=== PATIENT | male | born 1995 | race Caucasian/White ===

== ENCOUNTER → 2024-01-18 | Outpatient (CLI) | payer OTHER | LOC: M SOG 08:08 | PROVIDERS: ATTEND Physician Assistant | DX: M79.642 Pain in left hand (principal) ==

== ENCOUNTER 2024-01-30 08:08 | Day surgery (SDC) | payer OTHER ==
[~2024-01-30] VITALS: Ht 185.4 cm; Wt 76.7 kg
[2024-01-30] MEDS ORDERED: LR 1,000 ML IV SCH ×2 (08:50→11:35)
[2024-01-30] MEDS ORDERED: LIDOCAINE 1% SDV 5ML VIAL SC PRN (08:50)
[2024-01-30] MEDS ORDERED: LIDOCAINE 2% 100MG/5ML SDV (FOR ANES.) As Ordered ONE (10:10)
[2024-01-30] MEDS ORDERED: MIDAZOLAM INJ 2MG/2ML VIAL As Ordered ONE (10:10)
[2024-01-30] MEDS ORDERED: fentaNYL 100 MCG/2 ML INJECTION As Ordered ONE (10:10)
[2024-01-30] MEDS ORDERED: propofoL 200 MG/20 ML VIAL As Ordered ONE (10:10)
[2024-01-30] MEDS ORDERED: ONDANSETRON 4MG 2ML VIAL As Ordered ONE (10:10)
[2024-01-30] MEDS ORDERED: KETOROLAC 60MG 2ML VIAL As Ordered ONE (10:11)
[2024-01-30] MEDS ORDERED: dexmedeTOMIDine (4MCG/ML)200MCG/50ML BTL (PRECEDEX) As Ordered ONE (10:11)
[2024-01-30] MEDS ORDERED: KETAMINE HCL 200MG/20ML VIAL As Ordered ONE (10:12)
[2024-01-30] MEDS ORDERED: ACETAMINOPHEN 1000MG 100ML IV BAG As Ordered ONE (10:49)
[2024-01-30] MEDS: ceFAZolin 2 GM/D5W 50 ML IV BAG As Ordered ONE (10:54)
[2024-01-30] MEDS ORDERED: ePHEDrine SULFATE 25 MG/5 ML(5MG/ML) SYRINGE As Ordered ONE (11:27)
[2024-01-30] MEDS ORDERED: PHENYLephrine 500MCG 5ML (100MCG/ML) SYRINGE As Ordered ONE (11:30)
[2024-01-30] MEDS: BACITRACIN OINTMENT 30GM TUBE As Ordered ONE (11:31)
[2024-01-30] MEDS ORDERED: fentaNYL 100 MCG/2 ML INJECTION IV PRN (11:35)
[2024-01-30] MEDS ORDERED: ONDANSETRON 4MG 2ML VIAL IV PRN (11:35)
[2024-01-30] MEDS ORDERED: PERC5TAB12 PO (11:48)
[2024-01-30] MEDS: oxyCODONE 5MG TAB PO PRN (12:17)
[2024-01-30 12:30] VITALS: BP 116/65; TEMP 97.2; O2SAT 99
== END 2024-01-30 12:54 | disposition home or self-care (01) ==
LOC: M SDC 08:08
PROVIDERS: ATTEND Orthopaedic Surgery Hand Surgery
DX: S66.322A Laceration of extensor muscle, fascia and tendon of right middle finger at wrist and hand level, initial encounter (principal); F41.9 Anxiety disorder, unspecified; F32.9 Major depressive disorder, single episode, unspecified; J45.909 Unspecified asthma, uncomplicated; F43.10 Post-traumatic stress disorder, unspecified
CPT/HCPCS: 26433; 76000; J0131; J0665; J0690; J1100; J1885; J2250; J2371; J2405; J3010

== ENCOUNTER → 2024-02-09 | Outpatient (CLI) | payer OTHER ==
[~2024-02-09] MED LIST: PERC5TAB12 PO
== END ==
LOC: M SOG 14:06
PROVIDERS: ATTEND Physician Assistant
DX: M20.012 Mallet finger of left finger(s) (principal)

== ENCOUNTER → 2024-03-01 | Outpatient (CLI) | payer OTHER | LOC: M SOG 07:50 | PROVIDERS: ATTEND Physician Assistant | DX: M20.012 Mallet finger of left finger(s) (principal); Z96.698 Presence of other orthopedic joint implants ==

== ENCOUNTER → 2024-03-26 | Outpatient (CLI) | payer OTHER | LOC: M SOG 07:59 | PROVIDERS: ATTEND Physician Assistant | DX: M20.012 Mallet finger of left finger(s) (principal) ==